=== PATIENT | male | born 1990 | race Caucasian/White ===

== ENCOUNTER 2018-11-13 15:11 | Emergency (ER) | payer BC ==
[2018-11-13 15:16] VITALS: BP 147/96; PULSE 59; RESP 18; TEMP 98
[2018-11-13] MEDS ORDERED: KETOROLAC 60 MG/2 ML VIAL IM STA (15:56)
[2018-11-13] MEDS ORDERED: ACET/COD 300 MG/30 MG STARTER PACK 6 TAB BTL PO STA (16:47)
--- NOTE | 2018-11-13 16:47 | ED ---
General Adult HPI - General Chief complaint: Dental/Oral Stated complaint: Abcess tooth Time Seen by Provider: 11/13/18 15:17 Source: patient, RN notes reviewed, old records reviewed Mode of arrival: ambulatory Limitations: no limitations - History of Present Illness Initial comments: 28-year-old male patient, no pertinent past medical history presents ED with right lower dental pain. Patient reports he did have a tooth repaired here, states that he has had pain for the last 2 days. [place] stephens called the dentist, however the unable dental Friday, he has been started on amoxicillin by dentist. [place] is presenting today for chief complaint of pain control. Systemic: Pt denies fatigue, fever/chills, rash. Pt denies weakness, night sweats, weight loss. Neuro: Pt denies headache, visual disturbances, syncope or pre-syncope. HEENT: Pt denies ocular discharge or irritation, otalgia, rhinorrhea, pharyngitis or notable lymphadenopathy. Cardiopulmonary: Pt denies chest pain, SOB, heart palpitations, dyspnea on exertion. Abdominal/GI: Pt denies abdominal pain, n/v/d. : Pt denies dysuria, burning w/ urination, frequency/urgency. Denies new onset urinary or bowel incontinence. MSK: Pt denies myalgia, loss of strength or function in extremities. Neuro: Pt denies new onset weakness, paresthesias. - Related Data Allergies Allergy/AdvReac Type Severity Reaction Status Date / Time No Known Allergies Allergy Verified 11/13/18 15:16 Review of Systems ROS Statement: Those systems with pertinent positive or pertinent negative responses have been documented in the HPI. ROS Other: All systems not noted in ROS Statement are negative. Past Medical History Past Medical History: No Reported History History of Any Multi-Drug Resistant Organisms: None Reported Past Surgical History: No Surgical Hx Reported Smoking Status: Never smoker Past Alcohol Use History: Daily Past Drug Use History: Marijuana General Exam - General Exam Comments Initial Comments: Constitutional: NAD, AOX3, Pt has pleasant affect. HEENT: NC/AT, trachea midline, neck supple, no lymphadenopathy. Posterior pharynx non erythematous, without exudates. External ears appear normal, without discharge. Mucous membranes moist. Eyes PERRLA, EOM intact. There is no scleral icterus. No pallor noted. Dental exam revealed poor dentition, no erythema, no signs symptoms of infection area of pain, no drainage, no fluctuance. Cardiopulmonary: RRR, no murmurs, rubs or gallops, no JVD noted. Lungs CTAB in anterior and posterior campbell. No peripheral edema. Abdominal exam: Abdomen soft and non-distended. Abdomen non-tender to palpation in all 4 quadrants. Bowel sounds active in LLQ. No hepatosplenomegaly. No ecchymosis Neuro: CN II-XII grossly intact. No nuchal rigidity. No raccon eyes, no tapia sign, no hemotympanum. No cervical spinal tenderness. MSK: No posterior calf tenderness bilaterally, homans sign negative bilaterally. Posterior tibialis and radial pulse +2 bilaterally. Sensation intact in upper and lower extremities. Full active ROM in upper and lower extremities, 5/5 stregnth. Limitations: no limitations Course Vital Signs 11/13/18 15:14 Temperature 98.0 F Pulse Rate 59 L Respiratory 18 Rate Blood Pressure 147/96 O2 Sat by Pulse 98 Oximetry Medical Decision Making - Medical Decision Making 28-year-old male patient presents in CDU chief complaint dental pain. Patient was started on antibiotics. Patient was in stable, physical exam displayed poor dentition, no infection noted. Patient discharged with Tylenol 3 starter pack, follow-up with dentist on Friday as scheduled. Return precautions discussed. Case discussed with Dr. Alexis. Disposition Clinical Impression: Pain, dental Disposition: HOME SELF-CARE Condition: Stable Instructions (If sedation given, give patient instructions): Toothache (ED) Additional Instructions: Patient to adhere to previously discussed treatment plan and will take medication(s) as directed. Patient to follow up with PCP in 1-2 days. Patient to return to ED if symptoms do not improve. Follow-up with dentist as scheduled, return to ER if condition worsens. Take antibiotics as prescribed by dentist. Is patient prescribed a controlled substance at d/c from ED?: No Referrals: Aidan Hernandez MD [Primary Care Provider] - 1-2 days
== END 2018-11-13 16:56 | disposition home or self-care (01) ==
LOC: EC 15:11
DX: K08.89 Other specified disorders of teeth and supporting structures (principal); Z98.890 Other specified postprocedural states
CPT/HCPCS: 99283; 96372; J1885

== ENCOUNTER 2019-02-05 19:13 | Emergency (ER) | payer BC ==
[2019-02-05 19:19] VITALS: BP 115/69; PULSE 69; RESP 18; TEMP 97.9
--- NOTE | 2019-02-05 19:36 | ED ---
Wound/Laceration HPI - General Chief Complaint: Wound/Laceration Stated Complaint: Bleeding-declined to say more Time Seen by Provider: 02/05/19 19:20 Source: patient Mode of arrival: ambulatory Limitations: no limitations - History of Present Illness Initial Comments: 28-year-old male patient presents to the emergency department today for evaluation of bleeding from his scrotum. Patient states that he was sitting on the couch when he noticed his pants were wet with blood. When he checked he noted bleeding from the anterior aspect of his scrotum. Patient states he has enlarged capillaries on his scrotum which have been checked by his doctor, he was told to use steroid cream to shrink the vessels. Patient denies any injury to the area. Denies any pain. Denies any difficulty with urination. He was able to get the bleeding to stop. Patient denies any headache, neck pain, back pain, chest pain, shortness of breath, dizziness, weakness, abdominal pain, nausea, vomiting, or difficulties with bowel movements or urination. - Related Data Allergies Allergy/AdvReac Type Severity Reaction Status Date / Time No Known Allergies Allergy Verified 02/05/19 19:19 Review of Systems ROS Statement: Those systems with pertinent positive or pertinent negative responses have been documented in the HPI. ROS Other: All systems not noted in ROS Statement are negative. Past Medical History Past Medical History: No Reported History Additional Past Medical History / Comment(s): chronic back pain History of Any Multi-Drug Resistant Organisms: None Reported Past Surgical History: No Surgical Hx Reported Past Psychological History: No Psychological Hx Reported Smoking Status: Never smoker Past Alcohol Use History: None Reported Past Drug Use History: Marijuana General Exam Limitations: no limitations General appearance: alert, in no apparent distress, other (This is a well- developed, well-nourished adult male patient in no acute distress. Vital signs upon presentation are temperature 97.9F, pulse 69, respirations 18, blood pressure 115/69, pulse ox 98% on room air.) Respiratory exam: Present: normal lung sounds bilaterally. Absent: respiratory distress, wheezes, rales, rhonchi, stridor Cardiovascular Exam: Present: regular rate, normal rhythm, normal heart sounds. Absent: systolic murmur, diastolic murmur, rubs, gallop, clicks GI/Abdominal exam: Present: soft, normal bowel sounds. Absent: distended, tenderness, guarding, rebound, rigid exam: Present: other (Patient has normal-appearing scrotum with enlarged capillaries noted. There is one scabbed lesion with no active bleeding. 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 Absent: testicular tenderness, scrotal swelling Neurological exam: Present: alert, oriented X3, CN II-XII intact Psychiatric exam: Present: normal affect, normal mood Skin exam: Present: warm, dry, intact, normal color. Absent: rash Course Vital Signs 02/05/19 02/05/19 19:15 19:40 Temperature 97.9 F 97.9 F Pulse Rate 69 69 Respiratory 18 18 Rate Blood Pressure 115/69 115/69 O2 Sat by Pulse 98 98 Oximetry Medical Decision Making - Medical Decision Making 28-year-old male patient presents to the emergency department today for evaluation of bleeding from a wound on his scrotum. Physical examination did reveal scabbed lesions with no active bleeding. Patient is not having any pain or discomfort. We discharged follow-up with his primary care physician for recheck in 1-2 days. Should bleeding restart he is instructed to hold pressure apply ice. Return parameters were discussed in detail. He verbalizes understanding and agrees with this plan. Disposition Clinical Impression: Bleeding of blood vessel Disposition: HOME SELF-CARE Condition: Good Instructions (If sedation given, give patient instructions): Acute Wound Care (ED) Additional Instructions: Keep area clean and dry. Her primary care physician for recheck in 1-2 days. Return to the emergency department immediately for any new, worsening, or concerning symptoms. Is patient prescribed a controlled substance at d/c from ED?: No Referrals: Aidan Hernandez MD [Primary Care Provider] - 1-2 days Time of Disposition: 19:36
== END 2019-02-05 19:42 | disposition home or self-care (01) ==
LOC: EC 19:13
DX: N50.1 Vascular disorders of male genital organs (principal)
CPT/HCPCS: 99283